=== PATIENT | male | born 1980 | race Caucasian/White ===

== ENCOUNTER 2017-04-24 02:07 | Emergency (ER) | payer SELFPAY ==
[~2017-04-24] VITALS: Ht 167.6 cm; Wt 115.0 kg
[2017-04-24] MEDS ORDERED: IBUPROFEN 600MG TABLET PO ONE (06:30)
[2017-04-24] MEDS ORDERED: TETANUS, DIPHTHERIA, PERTUSSIS VAC/PF 0.5ML (>7YR OLD) IM ONE (06:30)
[2017-04-24 06:40] VITALS: BP 133/84
== END 2017-04-24 07:11 | disposition home or self-care (01) ==
LOC: ER 02:07
DX: S06.0X0A Concussion without loss of consciousness, initial encounter (principal); S00.81XA Abrasion of other part of head, initial encounter; M48.02 Spinal stenosis, cervical region; M79.89 Other specified soft tissue disorders; Z23 Encounter for immunization; S20.312A Abrasion of left front wall of thorax, initial encounter; V49.50XA Passenger injured in collision with unspecified motor vehicles in traffic accident, initial encounter; Y93.89 Activity, other specified; Y92.410 Unspecified street and highway as the place of occurrence of the external cause
CPT/HCPCS: 70450; 71020; 72125; 90471; 90715; 99284; Z7610